=== PATIENT | female | born 1965 | race American Indian/Alaskan Native ===

== ENCOUNTER 2018-03-06 18:45 | Emergency (ER) | payer OTHER ==
[2018-03-06 18:52] VITALS: BP 158/108
[2018-03-06 19:17] LABS: Hemoglobin 11.4 gm/dl (10.1-14.3); Mean Corpuscular HGB Conc 34 % (30-34); Mean Corpuscular Hemoglobin 30 pg (28-32); Mean Corpuscular Volume 90 fl (79-97); Platelet Count 381 K/mm3 (140-440); Red Cell Distribution Width 13.3 % (13.2-15.2)
[2018-03-06 19:42] LABS: BUN/Creatinine Ratio 22; Blood Urea Nitrogen 13 mg/dL (7-17); Calcium 8.7 mg/dL (8.4-10.2); Hemolysis Index 0
--- NOTE | 2018-03-06 20:20 | XRay Report ---
FINAL REPORT EXAM: XR CHEST ROUTINE 2V HISTORY: sob,cough TECHNIQUE: Frontal and lateral chest x-ray. PRIORS: None. FINDINGS: Cardiac and mediastinal silhouette within normal limits. Lungs are normally expanded, without significant vascular congestion. No focal consolidation, pleural effusion or apparent pneumothorax. Bony thorax grossly unremarkable. IMPRESSION: 1. No acute consolidation.
[2018-03-07] MEDS ORDERED: ULTRAM PO ONE
[2018-03-07] MEDS ORDERED: ULTRAM ONE
== END 2018-03-07 00:15 | disposition left against medical advice (07) ==
LOC: ED 18:45
DX: J00 Acute nasopharyngitis [common cold] (principal); Z53.21 Procedure and treatment not carried out due to patient leaving prior to being seen by health care provider
CPT/HCPCS: 36415; 71046; 80048; 85027; 87116; 87430